=== PATIENT | male | born 1960 | race Caucasian/White ===

== ENCOUNTER 2023-01-09 11:22 | Emergency (ER) | payer BC ==
[~2023-01-09] VITALS: Ht 177.8 cm; Wt 75.0 kg
[~2023-01-09 11:22] MED LIST: DOXE10CA3 PO; ESCI-8 PO; PANT40TA54 PO; ROSU10TA28 PO
[2023-01-09] MEDS ORDERED: acetaminophen 325mg tablet PO ONE (11:30)
[2023-01-09 12:17] LABS: HEMOGLOBIN 15.6 g/dl (14.0-17.9); LYMPHOCYTES # (AUTO) 0.4 X10'3 (1.1-4.8); MONOCYTES # (AUTO) 0.6 X10'3 (0-0.9)
[2023-01-09 12:18] LABS: BASOPHILS % (AUTO) 0.2 % (0-1); EOSINOPHILS % (AUTO) 0.3 % (0-6); HEMATOCRIT 45.5 % (42.0-52.0); LYMPHOCYTES % (AUTO) 3.9 % (21-51); MEAN CORPUSCULAR HEMOGLOBIN 32.1 PG (27.0-31.0); MEAN CORPUSCULAR HGB CONC 34.3 g/dL (33.0-36.5); MEAN CORPUSCULAR VOLUME 93.4 FL (78-98); MONOCYTES % (AUTO) 5.6 % (2-12); PLATELET COUNT 191 X10'3 (140-440); RED BLOOD COUNT 4.87 X10'6 (4.70-6.10); RED CELL DISTRIBUTION WIDTH 13.3 % (11.5-14.5)
[2023-01-09 12:35] LABS: ALANINE AMINOTRANSFERASE 93 U/L (12-78); ALBUMIN 4.4 G/DL (3.4-5.0); ALBUMIN/GLOBULIN RATIO 1.2 (1.1-1.5); ALKALINE PHOSPHATASE 91 IU/L (46-116); ANION GAP 7 (8-16); ASPARTATE AMINO TRANSFERASE 41 U/L (10-37); BILIRUBIN,TOTAL 0.8 MG/DL (0.1-1.0); BLOOD UREA NITROGEN 23 MG/DL (7-18); BUN/CREATININE RATIO 18.5 (10.0-20.0); CALCIUM 9.6 MG/DL (8.5-10.1); CHLORIDE 101 MMOL/L (99-107); CREATININE 1.24 MG/DL (0.60-1.10); GLUCOSE 137 MG/DL (70-104); POTASSIUM 3.9 MMOL/L (3.5-5.1); SODIUM 138 MMOL/L (135-145); TOTAL CARBON DIOXIDE 29.8 MMOL/L (24-32); eCRCL 62 ML/MIN; eGFR 59 ML/MIN
[2023-01-09] MEDS ORDERED: morphine 4 MG/ML inj SYRINge IV ONE (13:10)
[2023-01-09] MEDS ORDERED: ringers solution, lacted 1,000 ML IV ONE (13:10)
--- NOTE | 2023-01-09 13:29 | NUR ---
CALLED BY OPERATIONS SUPPORT REPRESENTATIVE TO ASSIST PT IN LOBBY PT BROUGHT BACK TO TRIAGE 2 ROOM APAP 650 MG PO ADMIN FOR FEVER 102 PIV ESTABLISHED LR INFUSING VIA PRESSURE PUMP PROVIDER TALKING W PT AND BLOOD SPECIMENS COLLECTED PRIOR TO PIV INITIATION PLAN OF CARE REVIEWED W PT BY PROVIDER PT WAITING FOR ROOM ASSIGNMENT
[2023-01-09] MEDS ORDERED: iohexol 300mg/ml 100ml inj. ONE (14:06)
[2023-01-09 14:59] LABS: BILIRUBIN,URINE NEGATIVE (Neg); CLARITY,URINE CLEAR (Clear); COLOR,URINE YELLOW (Yellow); GLUCOSE, URINE NEGATIVE (Neg); KETONES,URINE NEGATIVE (Neg); LEUKOCYTE ESTERASE ,URINE NEGATIVE (Neg); NITRITES, URINE NEGATIVE (Neg); OCCULT BLOOD,URINE TRACE-INTACT (Neg); PH,URINE 6.5 (4.8-8.0); PROTEIN,URINE 30 mg/dl (Neg); UROBILINOGEN,URINE 0.2 E.U/dL (0.2-1.0)
[2023-01-09 15:00] LABS: UA COLLECTION TYPE CLN CATCH MIDSTREAM
[2023-01-09 15:14] LABS: BACTERIA,URINE NONE SEEN /HPF (Neg); MUCUS STRANDS NONE SEEN /LPF (Neg); RBC,URINE 0-2 /HPF (0-2); SQUAMOUS EPITHELIAL CELL,UR FEW /LPF (FEW)
[2023-01-09 15:15] LABS: WBC,URINE 0-4 /HPF (0-4)
[2023-01-09] MEDS ORDERED: DOXY100T67 PO (15:45)
[2023-01-09 16:32] VITALS: BP 113/82; PULSE 83; RESP 15; TEMP 97.8; O2SAT 95
== END 2023-01-09 16:38 | disposition home or self-care (01) ==
LOC: ER 11:22
DX: G89.18 Other acute postprocedural pain (principal); Z20.822 Contact with and (suspected) exposure to COVID-19; R50.9 Fever, unspecified; R10.13 Epigastric pain; R53.1 Weakness; Z90.49 Acquired absence of other specified parts of digestive tract; Z79.2 Long term (current) use of antibiotics; Z79.899 Other long term (current) drug therapy
CPT/HCPCS: 36415; 71045; 74177; 80053; 81001; 83605; 83690; 84145; 85025; 87040; 87811; 93005; 96360; 96361; 99285; J3490; J7120; Q9967